=== PATIENT | female | born 2000 | race Caucasian/White ===

== ENCOUNTER 2020-12-07 12:42 | Emergency (ER) | payer BC, OTHER, SELFPAY ==
--- NOTE | ~2020-12-07 | XR_ITS ---
EXAMINATION: XR hand RT min 3V EXAM DATE: 12/07/2020 13:03 INDICATION: Hit With Softball Today, Pain Rt Hand, Fingers 3-5. TECHNIQUE: Right hand frontal, lateral and oblique projections obtained and reviewed. There is no pr ior study for comparison. FINDINGS: Right metacarpal bones are unremarkable. Acute closed posttraumatic fracture right 3rd di stal phalangeal base with distraction of fracture fragment. This likely requires surgical fixation du e to disrupted flexor mechanism. There is mild subluxation of the distal phalanx dorsally, another in dication of suspected flexor mechanism disruption. There is acute closed posttraumatic fracture at the volar plate of the right 3rd middle phalanx witho ut displacement. Acute closed posttraumatic 4th tuft fracture, essentially nondisplaced. Acute closed posttraumatic fracture 5th volar plate, essentially nondisplaced. IMPRESSION: 1. Right 3rd distal phalangeal base fracture, distracted volar plate, disrupted flexor mechanism. 2. 3rd middle phalangeal volar plate nondisplaced fracture. 3. 4th tuft nondisplaced fracture. 4. 5th middle phalangeal volar plate nondisplaced fracture. 5. Orthopedic consult. Reviewed, dictated and finalized at location A.
[2020-12-07 12:49] VITALS: BP 132/77; PULSE 71; RESP 12; TEMP 37.1; O2SAT 100
--- NOTE | 2020-12-07 14:10 | ED.UPPEXIN ---
HPI - Extremity Injury (Upper) General Chief Complaint: Extremity Injury, Upper Stated Complaint: INJURED R HAND Source: patient and RN notes reviewed Limitations: no limitations History of Present Illness HPI narrative: A right-handed college student, presents with hand injury. Patient states she was playing softball when a ball took a bad hop, jamming/axial compressing her right ulnar fingers. She complains of mild to moderate pain of the distal digits 3?5 especially long finger, that is worse with motion, better with rest or elevation or ice . No bleeding, deformity but there is swelling diffusely. X-ray shows fractures of the distal digits; advised she will need to splint and see hand surgery in follow-up without fail [Surgeon reference provided]. Review of Systems Review of Systems: General/Constitutional: No weight loss,fever Eyes: N0: Redness,discharge Ears/Nose/Throat: No: Epistaxis,ear discharge Respiratory: Denies: Hemoptysis Gastrointestinal: No Vomiting, Bleeding-rectal Skin: No Lumps, eruption Neurologic: No Focal Weakness,Sz Hematologic: Denies: Petechiae/Purpura Psychiatric: No: Suicida ideationl All Other Systems: Reviewed and Negative [facility] Comments At time of signature, agree with nursing past medical, surgical, social and family history. There is no relevant family history pertinent to the presenting complaint Exam Narrative: General Appearance: Well appearing, Conjunctiva clear Mouth/Throat: Normal appearing, Normal lips, Supple Respiratory: Airway patent, No respiratory distress MS-fingers: Normal strength (mostly intact, limited flexion/extension by pain), Tenderness ( distal tip 3-5, with mild decreased ROM), Swelling (distally, Other (no anterior drawer, no collateral laxity, ) Skin: Warm, Dry, Normal color Neurological: A&O x3,, Normal affect Course Vital Signs Vital signs: Vital Signs Temperature 98.7 F 12/07/20 12:49 Pulse Rate 71 12/07/20 12:49 Respiratory Rate 12 12/07/20 12:49 Blood Pressure 132/77 12/07/20 12:49 Pulse Oximetry 100 12/07/20 12:49 Temperature 98.7 F 12/07/20 12:49 Pulse Rate 71 12/07/20 12:49 Respiratory Rate 12 12/07/20 12:49 Blood Pressure 132/77 12/07/20 12:49 Pulse Oximetry 100 12/07/20 12:49 Discharge Plan Discharge Clinical Impression: Fracture, finger, distal phalanx Qualifiers: Encounter type: initial encounter Finger: little finger Fracture type: closed Fracture alignment: nondisplaced Laterality: right Qualified Code(s): S62.666A - Nondisplaced fracture of distal phalanx of right little finger, initial encounter for closed fracture Fracture of finger of right hand Qualifiers: Encounter type: initial encounter Finger: ring finger Fracture type: closed Phalanx: distal Fracture alignment: nondisplaced Qualified Code(s): S62.664A - Nondisplaced fracture of distal phalanx of right ring finger, initial encounter for closed fracture Fracture of finger, closed Qualifiers: Encounter type: initial encounter Finger: middle finger Phalanx: distal Fracture alignment: displaced Laterality: right Qualified Code(s): S62.632A - Displaced fracture of distal phalanx of right middle finger, initial encounter for closed fracture Patient Disposition: Home, Self-Care Condition: Improved Instructions: Finger Fracture (ED) Additional Instructions: Wear splint, see hand physician in follow-up [reference provided] As discussed you may try commercial splints [boxers, etc; reference provided] Prescriptions: New tramadol 50 mg tablet 50 - 75 mg PO BID PRN (Reason: pain) Qty: 30 RF: 0 acetaminophen-codeine 300-30 mg tablet 1 tablet PO HS PRN (Reason: pain) Qty: 10 RF: 0 Follow-up/Referrals: PHYSICIAN,EXECUTIVE VICE PRESIDENT OF SALES [Primary Care Provider] - Stand Alone Forms: Work/School Release IP
== END 2020-12-07 14:35 | disposition home or self-care (01) ==
PROVIDERS: Emergency Provider Emergency Medicine
DX: S62.666A Nondisplaced fracture of distal phalanx of right little finger, initial encounter for closed fracture (principal); S62.664A Nondisplaced fracture of distal phalanx of right ring finger, initial encounter for closed fracture; S62.632A Displaced fracture of distal phalanx of right middle finger, initial encounter for closed fracture; W21.03XA Struck by baseball, initial encounter; Y93.64 Activity, baseball
CPT/HCPCS: 29125; 73130; 99214; G0463